=== PATIENT | female | born 1945 | race Caucasian/White ===

== ENCOUNTER 2019-06-30 12:31 | Emergency (ER) | payer OTHER ==
[~2019-06-30] VITALS: Ht 165.1 cm; Wt 44.5 kg
[2019-06-30] MEDS ORDERED: SYNTHROID200 MCG (12:45)
[2019-06-30] MEDS ORDERED: CLONAZEPAM1 MG (12:46)
[2019-06-30] MEDS ORDERED: ASPIR 8181 MG (12:47)
[2019-06-30] MEDS ORDERED: ATORVASTATIN CA40 MG (12:47)
[2019-06-30] MEDS ORDERED: METFORMIN HCL500 M3 (12:47)
[2019-06-30] MEDS ORDERED: MEMANTINE HCL E28 MG (12:48)
[2019-06-30] MEDS ORDERED: CARBIDOPA LEVADOPA (12:50)
== END 2019-06-30 14:18 | disposition home or self-care (01) ==
LOC: ER 12:31 → EDBD 12:35 → ER 14:18
DX: R22.32 Localized swelling, mass and lump, left upper limb (principal); G30.8 Other Alzheimer's disease; F02.80 Dementia in other diseases classified elsewhere, unspecified severity, without behavioral disturbance, psychotic disturbance, mood disturbance, and anxiety

== ENCOUNTER 2019-07-09 06:30 | Day surgery (SDC) | payer OTHER ==
[~2019-07-09 06:30] MED LIST: ASPIR 8181 MG; ATORVASTATIN CA40 MG; CARBIDOPA LEVADOPA; CLONAZEPAM1 MG; MEMANTINE HCL E28 MG; METFORMIN HCL500 M3; SYNTHROID200 MCG; SYNTHROID200 MCG PO
[2019-07-09] MEDS ORDERED: ULTRACET PO (12:07)
== END 2019-07-09 14:30 | disposition home or self-care (01) ==
LOC: EDBD → CIR.AMB 06:30
DX: S52.532A Colles' fracture of left radius, initial encounter for closed fracture (principal)
CPT/HCPCS: 25609; 20902; C1776

== ENCOUNTER 2019-07-11 10:32 | Emergency (ER) | payer OTHER ==
[~2019-07-11] VITALS: Ht 165.1 cm; Wt 44.5 kg
[~2019-07-11 10:32] MED LIST changes: +ULTRACET PO
[2019-07-11] MEDS ORDERED: CARBIDOPA-LEVO1 EAC9 (11:21)
[2019-07-11] MEDS ORDERED: LIPITOR40 M1 (11:22)
[2019-07-11] MEDS ORDERED: ZOLOFT25 MG (11:22)
[2019-07-11] MEDS ORDERED: CHILDREN'S ASPI81 MG (11:22)
[2019-07-11] MEDS ORDERED: CLONAZEPAM1 M1 (11:23)
[2019-07-11] MEDS ORDERED: NAMENDA10 MG (11:23)
[2019-07-11] MEDS ORDERED: BUSPIRONE HCL7.5 MG (11:23)
[2019-07-11] MEDS ORDERED: SYNTHROID200 MCG (11:24)
[2019-07-11] MEDS ORDERED: CELEBREX100 MG PO (12:59)
[2019-07-11] MEDS ORDERED: VISTARIL50 MG PO (12:59)
[2019-07-11] MEDS ORDERED: SEROQUEL25 MG PO (12:59)
== END 2019-07-11 13:10 | disposition home or self-care (01) ==
LOC: ER 10:32
DX: R60.0 Localized edema (principal); G30.8 Other Alzheimer's disease; F02.80 Dementia in other diseases classified elsewhere, unspecified severity, without behavioral disturbance, psychotic disturbance, mood disturbance, and anxiety; T40.2X5A Adverse effect of other opioids, initial encounter; Z98.890 Other specified postprocedural states; Y92.89 Other specified places as the place of occurrence of the external cause